=== PATIENT | male | born 1950 | race African-American/Black ===

== ENCOUNTER 2021-08-02 09:53 | Day surgery (SDC) | payer OTHER ==
[2021-07-28 15:40] LABS: Hematocrit 43.3 % (39.6-49.0); Lymphocytes % 34.2 % (15.3-44.8); MPV 9.2 fL (7.6-11.3); RBC Red Blood Cell Count 4.95 M/uL (4.33-5.43)
[2021-07-28 15:41] LABS: Protime INR 1.06
[2021-07-28 20:44] LABS: Blood Morphology Comment NOT SEEN (NOT SEEN); Platelet Estimate DECR; White Blood Cell Scan OK (OK)
[2021-07-28 21:04] LABS: Potassium 4.2 mmol/L (3.5-5.1)
[2021-08-02] MEDS ORDERED: Ringers Lactate 1,000 ML IV ONE (10:35)
[2021-08-02] MEDS ORDERED: CEFAZOLIN/NS 1gm 1 GM/50 ML BAG ONE (10:36)
[2021-08-02] MEDS ORDERED: CELECOXIB 100 MG CAPSULE ONE (11:27)
[2021-08-02] MEDS ORDERED: ACETAMINOPHEN 500 MG TAB ONE (11:28)
[2021-08-02] MEDS ORDERED: MIDAZOLAM HCL 2 MG/2 ML INJ ONE (12:40)
[2021-08-02] MEDS ORDERED: FENTANYL CITR 100 MCG/2 ML ONE (12:40)
[2021-08-02] MEDS ORDERED: propofoL 200 MG/20 ML VIAL IV ONE (12:40)
[2021-08-02] MEDS ORDERED: LIDOCAINE 1% MPF 5 ML VIAL ONE (12:40)
[2021-08-02] MEDS ORDERED: GLYCOPYRROLATE 0.2 MG/ML SYR ONE (13:34)
[2021-08-02 14:16] VITALS: O2SAT 100
[2021-08-02] MEDS ORDERED: CODEINE 30MG/APAP 300MG TAB PO PRN (14:21)
[2021-08-02] MEDS ORDERED: PHENAZOPYRIDINE 100MG TAB PO ONE ×3 (14:21→15:15)
--- NOTE | 2021-08-02 14:26 | P.OP ---
Preoperative diagnosis: BPH with LUTS Postoperative diagnosis: same Primary procedure: Prostatic Urethral Lift/UroLift Secondary procedure: cystoscopy Anesthesia: LMA general Estimated blood loss: <10cc Findings: lateral lobar hypertrophy and apical overhang Operative Technique: The patient was consented in the preoperative holding area before being transferred to the operative suite where general anesthesia was induced. He was given Ancef 2 g IV antimicrobial prophylaxis and pneumo boots were provided for DVT prophylaxis. He was placed in the high lithotomy position, padded and secured to the table appropriately. His genitalia were prepped using Hibiclens and draped in standard fashion. The case was begun using a 20-Portuguese specially designed cystoscope for the prostatic urethral lift as well as visual obturator to traverse the urethra and enter the bladder. The bladder was briefly surveyed, and no mucosal lesions, foreign bodies or stones were noted throughout. The prostatic urethral lumen was assessed and the previously noted lateral lobar hypertrophy left greater than right was again visualized. The visual obturator bridge was then replaced with a UroLift delivery device. The first treatment was placed on the patient's left side approximately 2.0 cm distal to the bladder neck. The distal tip of the delivery device was then angled laterally approximately 20 degrees to compress the lateral lobe. The trigger was pulled, thereby deploying a needle containing the implant through the prostate. There was no evidence of pelvic contact at this point. The needle was then retracted, allowing 1 end of the implant to be delivered to the capsular surface of the prostate. The implant was then tensioned to assure capsular seating and removal of slack monofilament. The device was then angled back toward the midline and slowly was advanced approximately 3-4 mm until cystoscopic verification of the monofilament being centered in the delivery bay. The urethral end piece was then affixed to the monofilament and thereby tailoring the size of the implant. The excess filament was then severed. The device was then readvanced into the bladder. The sheath was left in place and the delivery device was then replaced with the cystoscope and bridge, and the implant location and opening affect were confirmed cystoscopically. The procedure was then repeated again on the right side approximately 1.5 to 2 cm from the bladder neck, and implant was placed symmetrically there. I then turned my attention again to the left side distally more at the level of the verumontanum and an additional implant was placed there. I then turned my attention to the right side of the prostate and delivered an implant at the level of the verumontanum on the right side. The cystoscope was then readvanced into the bladder and the channel was surveyed. There was still some lateral lobar hypertrophy in the mid gland region, and so a fifth implant was placed in the mid gland on the left to address that tissue. An implant was placed on the right side in the mid gland contralateral. I then reassessed cystoscopically the channel from the apex through to the bladder neck, and I noted that there was some left lateral anterior lobar overhang of tissue, which seem to obstruct the lumen somewhat. As a result, I placed an additional implant superior to the implant placed at the bladder neck. This did seem to elevate the tissue somewhat, but incompletely. So an additional implant was placed more anteriorly than that. This resulted in elevation of that anterior tissue and a more patent channel. In the end, lateral lobar compression apically and within the mid zone of the prostate was excellent, and an open channel from the Veru through to the bladder neck was achieved. Final cystoscopy inspected the location and state of each implant and confirmed the presence of a continuous anterior channel. I then left the bladder full and placed an 18-Portuguese coude tipped catheter into his bladder with ease. 15 cc of sterile water was placed in the balloon. The catheter was connected to a floor bag, and the patient was taken out of the lithotomy position. He was then awakened from general anesthesia, transferred to a stretcher, and then transferred to the recovery room in good condition. Complications: None. Discharge Disposition: He may remove the catheter himself at home tomorrow around 7 a.m. and should void within 6 hours. If he had difficulty voiding, he should come to the [facility] for management. Subsequent follow up will be established in about 1 month's time to make an interval assessment of his symptomatology. Complications: None Drain(s): Other ([place] catheter) Implants: 8 Transferred to: Recovery Room Condition: Good
[2021-08-02 15:42] VITALS: BP 135/78; TEMP 97.6
== END 2021-08-02 15:38 | disposition home or self-care (01) ==
LOC: OR 09:53
PROVIDERS: ATTEND Urology
PROC: 0T7D8DZ Dilation of Urethra with Intraluminal Device, Via Natural or Artificial Opening Endoscopic (ICD-10-PCS; principal; 2021-08-02 12:30)
DX: N40.1 Benign prostatic hyperplasia with lower urinary tract symptoms (principal); Z20.822 Contact with and (suspected) exposure to COVID-19
CPT/HCPCS: 52441; 52442 ×4; 93005; 87088; 85025; 87086; 80048; 36415; 85610; U0003; J2704; J2250; J3010; J0690; J7120